=== PATIENT | female | born 1975 | race Asian ===

== ENCOUNTER 2016-06-03 13:30 | Emergency (ER) | payer OTHER, MEDICARE ==
[~2016-06-03] VITALS: Ht 154.9 cm; Wt 78.0 kg
[~2016-06-03 13:30] MED LIST: INSU100I13 SQ; atenolol; norvasc
[2016-06-03 14:29] VITALS: BP 169/91
[2016-06-03] MEDS ORDERED: LIDOCAINE 1% / SOD BICARB 8.4% 20 ML VIAL. IJ ONE (15:45)
[2016-06-03] MEDS ORDERED: ONDA4TAB7 PO (16:27)
[2016-06-03] MEDS ORDERED: CEPH-264 PO (16:27)
[2016-06-03] MEDS ORDERED: HYDR-971 PO (16:27)
[2016-06-03] MEDS ORDERED: SULF1TAB24 PO (16:27)
--- NOTE | 2016-06-03 16:28 | PHYS DOC ---
Past Medical History Past Medical History: Diabetes-Type II, Hypertension, Renal Failure Past Surgical History: Additional Past Surgical Histo: Peritoneal Dialysis Alcohol Use: None Drug Use: None Adult General Chief Complaint Chief Complaint: LOWER EXTREMITY SWELLING HPI HPI This is a 40-year-old female who has an area of redness and abscess formation to her left lower tibial surface for the last 2 days. She denies any fever or chills. She denies any nausea or vomiting. She states the area is mildly painful as well. Patient does have history of renal disease and is on peritoneal dialysis Review of Systems Review of Systems Constitutional: Denies fever or chills [] Eyes: Denies change in visual acuity, redness, or eye pain [] HENT: Denies nasal congestion or sore throat [] Respiratory: Denies cough or shortness of breath [] Cardiovascular: No additional information not addressed in HPI [] GI: Denies abdominal pain, nausea, vomiting, bloody stools or diarrhea [] : Denies dysuria or hematuria [] Musculoskeletal: Denies back pain or joint pain [] Integument: Denies rash or skin lesions [] Neurologic: Denies headache, focal weakness or sensory changes [] Endocrine: Denies polyuria or polydipsia [] Current Medications Current Medications Current Medications Medications (Trade) Dose Ordered Sig/Petr Start Time Stop Time Status Last Admin Dose Admin Lidocaine/Sodium Bicarbonate (Buffered Lidocaine 1%) 20 ml 1X ONCE 06/03/16 15:45 06/03/16 15:46 DC 06/03/16 15:21 20 ML Allergies Allergies Allergies Coded Allergies Type Severity Reaction Last Updated Verified No Known Drug Allergies 01/17/15 No Physical Exam Physical Exam Constitutional: Well developed, well nourished, no acute distress, non-toxic appearance. [] HENT: Normocephalic, atraumatic, bilateral external ears normal, oropharynx moist, no oral exudates, nose normal. [] Eyes: PERRLA, EOMI, conjunctiva normal, no discharge. [] Neck: Normal range of motion, no tenderness, supple, no stridor. [] Cardiovascular:Heart rate regular rhythm, no murmur [] Lungs & Thorax: Bilateral breath sounds clear to auscultation [] Abdomen: Bowel sounds normal, soft, no tenderness, no masses, no pulsatile masses. [] Skin: Warm, dry, moderate area of erythema approximately 4-5 cm in diameter with an abscess approximately 2 cm in diameter with some fluctuance noted. [] Back: No tenderness, no CVA tenderness. [] Extremities: No tenderness, no cyanosis, no clubbing, ROM intact, no edema. [] Neurologic: Alert and oriented X 3, normal motor function, normal sensory function, no focal deficits noted. [] Psychologic: Affect normal, judgement normal, mood normal. [] Current Patient Data Vital Signs Vital Signs Date Time Temp Pulse Resp B/P Pulse Ox O2 Delivery O2 Flow Rate FiO2 06/03/16 14:29 98.9 83 20 100 Room Air 98.9 EKG EKG [] Radiology/Procedures Radiology/Procedures [] Course & Med Decision Making Course & Med Decision Making Pertinent Labs and Imaging studies reviewed. (See chart for details) This 40-year-old female with a cellulitic area and area of abscess formation for which I performed an incision and drainage moderate amount of purulent drainage expressed. The area was then packed with iodoform gauze. I'll be placing the patient on Bactrim and Keflex for her ongoing cellulitis. I do not see an indication perform any laboratory workup as she has no signs of any systemic illness. She will follow up for wound eval in the next 2 days. Pain control was also provided and nausea control. She was given strict instruction to return if she has any worsening pain or if the area redness increases in size. Dragon Disclaimer Dragon Disclaimer This electronic medical record was generated, in whole or in part, using a voice recognition dictation system. Incision and Drainage Indication: abscess Procedure: The patient was positioned appropriately. Local anesthesia was 1% lidocaine. An incision was then made over the apex of the lesion and a moderate amount of purulent material was expressed. The drainage cavity was irrigated and packed with sterile gauze. The patients tetanus status updated as needed. The patient tolerated the procedure well. Complications: none. Departure Departure Impression: Primary Impression: Abscess Additional Impression: Cellulitis Disposition: 01 HOME, SELF-CARE Condition: STABLE Referrals: MARIA WIGGINS MD (PCP) Patient Instructions: Abscess, [id number], Cellulitis, [id number] Additional Instructions: Please follow up with the primary doctor in the next 3 days for your wound to be reevaluated. Take your antibiotics and pain medication as prescribed. Return to the ER if you develop any worsening of your symptoms. Scripts Hydrocodone/Apap 5-325 ([place] 5-325 Tablet)1 Each Tablet1 Tab PO PRN Q6HRS PRN PAIN #10 TAB Ref 0 Prov:CEE LINARES DO 06/03/16 Cephalexin (Keflex)500 Mg Capsule1 Cap PO TID #30 CAP Prov:CEE LINARES DO 06/03/16 Sulfamethoxazole/Trimethoprim (Bactrim Ds Tablet)1 Each Tablet1 Tab PO BID #20 TAB Prov:CEE LINARES DO 06/03/16 Ondansetron Hcl (Zofran)4 Mg Tablet4 Mg PO BID PRN NAUSEA/VOMITING #14 TAB Prov:CEE LINARES DO 06/03/16 Problem Qualifiers CEE LINARES DO Jun 03, 2016 16:27
== END 2016-06-03 16:38 | disposition home or self-care (01) ==
LOC: ER 13:30
DX: L03.116 Cellulitis of left lower limb (principal); E11.22 Type 2 diabetes mellitus with diabetic chronic kidney disease; I12.9 Hypertensive chronic kidney disease with stage 1 through stage 4 chronic kidney disease, or unspecified chronic kidney disease; N18.9 Chronic kidney disease, unspecified; Z99.2 Dependence on renal dialysis
CPT/HCPCS: 10060; 99283-25

== ENCOUNTER → 2020-03-05 | Outpatient (CLI) | payer OTHER, MEDICARE ==
[~2020-03-05] MED LIST changes: +BIOT25006 PO; +CEPH-264 PO; +CHOL500050 PO; +HYDR-3164 PO; +INSU100V6 SQ; +MYCO500T PO; +ONDA4TAB7 PO; +PRED2.5T PO; +SULF1TAB24 PO; +TACR1CAP5 PO
== END ==
LOC: LAB 08:30
PROVIDERS: ATTEND Ophthalmology
DX: Z01.812 Encounter for preprocedural laboratory examination (principal); H26.8 Other specified cataract; Z20.828 Contact with and (suspected) exposure to other viral communicable diseases
CPT/HCPCS: U0003

== ENCOUNTER 2020-03-07 09:25 | Day surgery (SDC) | payer MEDICARE, OTHER ==
[~2020-03-07 09:25] MED LIST changes: +CIPROFLOXACIN 0.3% OPHTH SOLUTION 5ML BOTTLE. OD ONE; +CYCLOPENTOLATE 1% OPHTH SOLUTION 2ML BOTTLE. OD SCH; +LIDOCAINE 2% JELLY 6ML IN APPLICATOR. OD ONE; +PROPARACAINE 0.5% OPHTH SOLUTION 15ML BOTTLE. OD ONE
[2020-03-07] MEDS ORDERED: INSULIN LISPRO 100 UNIT/ML 3ML VIAL for OP,RR ONLY. SQ PRN (09:45)
[2020-03-07] MEDS ORDERED: MIDAZOLAM HCL/PF 2 MG/2 ML VIAL. ONE (09:46)
[2020-03-07] MEDS: PHENYLEPHRINE 10% OPHTH SOLUTION 5ML BOTTLE. OD SCH ×3 (10:20→10:30)
[2020-03-07] MEDS: CYCLOPENTOLATE 2% OPHTH SOLUTION 2ML BOTTLE. OD SCH ×3 (10:20→10:30)
[2020-03-07] MEDS ORDERED: IV RINGERS,LACTATED 1000ML 1,000 ML IV SCH (10:30)
[2020-03-07] MEDS ORDERED: LIDOCAINE 1%/PHENYLEPH 1.5% PF OPHTH 1 ML VIAL. ONE (10:40)
[2020-03-07] MEDS ORDERED: CHONDROITIN-SOD-HYALURONATE 0.5 ML DISP.SYRIN. ONE (10:40)
[2020-03-07] MEDS ORDERED: CHONDROIT-SOD-HYALURONATE KIT. ONE (10:40)
[2020-03-07] MEDS ORDERED: NEO/POLYMYX/DEXAMETH OPHTH OINTMENT 3.5GM TUBE. ONE (10:41)
[2020-03-07 11:46] VITALS: BP 164/82
--- NOTE | 2020-03-07 11:52 | OP ---
DATE OF SURGERY: 03/07/2020 PREOPERATIVE DIAGNOSIS: Cataract of the right eye. PROCEDURE: Phacoemulsification with posterior chamber intraocular lens implantation of the right eye. INDICATION: Painless progressive visual loss and visually significant cataract and difficulty reading and driving. SURGEON: Bailey Copeland MD ANESTHESIA: Topical with monitored anesthesia care. DESCRIPTION OF PROCEDURE: The right eye was prepped with Betadine in the usual sterile fashion and draped. A paracentesis was performed followed by instillation of 1% lidocaine preservative-free admixed with phenylephrine and balanced salt solution. Viscoelastic was injected in the anterior chamber and a temporal clear corneal incision was made followed by capsulorrhexis. [place] expression of the nucleus was done with Viscoat placed in anterior and posterior to the nucleus, which was evacuated with the phacoemulsification handpiece. The I/A handpiece was used to remove the remainder of the cortex and viscoelastic was injected in the capsular bag and an Honorio model [id number] with a power of 17.5 diopters was placed into the capsular bag. Balanced salt solution was used to hydrate the corneal wounds and the viscoelastic evacuated with the I/A handpiece. Once no leak was noted, Maxitrol was placed on the eye and the eye shielded and the patient was sent to the recovery room uneventfully. BAILEY COPELAND MD DR: KIM/abner JOB#: [id number] / [id number]
== END 2020-03-07 12:30 | disposition home or self-care (01) ==
LOC: SURG 09:25
PROVIDERS: ATTEND Ophthalmology
DX: E11.36 Type 2 diabetes mellitus with diabetic cataract (principal); H25.89 Other age-related cataract; I10 Essential (primary) hypertension; Z90.49 Acquired absence of other specified parts of digestive tract; Z98.890 Other specified postprocedural states; Z79.4 Long term (current) use of insulin; Z79.899 Other long term (current) drug therapy; Z88.1 Allergy status to other antibiotic agents; Z88.8 Allergy status to other drugs, medicaments and biological substances
CPT/HCPCS: 66984; 81025; 82962; C1780; J0171; J0690; J1580; J2250; J3490

== ENCOUNTER 2020-03-14 08:56 | Day surgery (SDC) | payer MEDICARE, OTHER ==
[~2020-03-14] VITALS: Ht 154.9 cm; Wt 63.5 kg
[~2020-03-14 08:56] MED LIST changes: -CIPROFLOXACIN 0.3% OPHTH SOLUTION 5ML BOTTLE. OD ONE; +CIPROFLOXACIN 0.3% OPHTH SOLUTION 5ML BOTTLE. OS ONE; -CYCLOPENTOLATE 1% OPHTH SOLUTION 2ML BOTTLE. OD SCH; -LIDOCAINE 2% JELLY 6ML IN APPLICATOR. OD ONE; +LIDOCAINE 2% JELLY 6ML IN APPLICATOR. OS ONE; -PROPARACAINE 0.5% OPHTH SOLUTION 15ML BOTTLE. OD ONE; +PROPARACAINE 0.5% OPHTH SOLUTION 15ML BOTTLE. OS ONE
[2020-03-14] MEDS ORDERED: LIDOCAINE 1%/PHENYLEPH 1.5% PF OPHTH 1 ML VIAL. ONE (09:13)
[2020-03-14] MEDS ORDERED: NEO/POLYMYX/DEXAMETH OPHTH OINTMENT 3.5GM TUBE. ONE (09:13)
[2020-03-14] MEDS ORDERED: CHONDROIT-SOD-HYALURONATE KIT. ONE (09:14)
[2020-03-14] MEDS ORDERED: CHONDROITIN-SOD-HYALURONATE 0.5 ML DISP.SYRIN. ONE (09:14)
[2020-03-14] MEDS: CYCLOPENTOLATE 2% OPHTH SOLUTION 2ML BOTTLE. OS SCH ×3 (09:56→10:06)
[2020-03-14] MEDS: PHENYLEPHRINE 10% OPHTH SOLUTION 5ML BOTTLE. OS SCH ×3 (09:56→10:06)
[2020-03-14] MEDS ORDERED: INSULIN LISPRO 100 UNIT/ML 3ML VIAL for OP,RR ONLY. SQ ONE (10:15)
[2020-03-14] MEDS ORDERED: INSULIN LISPRO 100 UNIT/ML 3ML VIAL for OP,RR ONLY. SQ PRN (10:15)
[2020-03-14] MEDS ORDERED: MIDAZOLAM HCL/PF 2 MG/2 ML VIAL. ONE (11:16)
[2020-03-14 11:45] VITALS: BP 121/71
[2020-03-14] MEDS ORDERED: IV NORMAL SALINE 1000ML BAG 1,000 ML IV SCH (11:45)
--- NOTE | 2020-03-14 13:33 | OP ---
DATE OF SURGERY: 03/14/2020 PREOPERATIVE DIAGNOSIS: Cataract of the left eye. PROCEDURE: Phacoemulsification with posterior chamber intraocular lens implantation in the left eye. INDICATION: Painless progressive visual loss and visually significant cataract and difficulty reading and driving. SURGEON: Bailey Copeland MD ANESTHESIA: Topical with monitored anesthesia care. DESCRIPTION OF PROCEDURE: The left eye was prepped with Betadine in the usual sterile fashion and draped. A paracentesis was performed followed by instillation of preservative-free phenylephrine admixed with balanced salt solution and lidocaine. A temporal clear corneal incision was made followed by instillation of viscoelastic fluid. A capsulorrhexis was performed followed by hydroexpression of the nucleus, which was evacuated with the phacoemulsification handpiece. The I/A handpiece was used to remove the cortex. Viscoelastic was injected into the capsular bag. An [place] model [id number] with a power of 19.0 diopters was placed into the capsular bag. Balanced salt solution was used to hydrate the corneal wounds and the viscoelastic evacuated with the I/A handpiece. Once no leak was noted, Maxitrol was placed in the eye and the eye shielded and the patient was sent to the recovery room uneventfully. BAILEY COPELAND MD DR: KIM/abner JOB#: [id number] / [id number]
== END 2020-03-14 12:00 | disposition home or self-care (01) ==
LOC: SURG 08:56
PROVIDERS: ATTEND Ophthalmology
DX: E11.36 Type 2 diabetes mellitus with diabetic cataract (principal); H25.89 Other age-related cataract; E11.22 Type 2 diabetes mellitus with diabetic chronic kidney disease; I12.0 Hypertensive chronic kidney disease with stage 5 chronic kidney disease or end stage renal disease; N18.6 End stage renal disease; Z99.2 Dependence on renal dialysis; Z90.49 Acquired absence of other specified parts of digestive tract; Z98.890 Other specified postprocedural states; Z79.4 Long term (current) use of insulin; Z79.899 Other long term (current) drug therapy; Z88.1 Allergy status to other antibiotic agents; Z88.8 Allergy status to other drugs, medicaments and biological substances
CPT/HCPCS: 66984; 81025; 82962; J0171; J0690; J1580; J2250; J3490; C1780; J1815